=== PATIENT | female | born 1965 | race African-American/Black ===

== ENCOUNTER 2022-06-15 05:10 | Inpatient (IN) ==
[2022-06-08 12:12] LABS: Basophils # 0.1 10*3/uL (0.0-0.2); Basophils % 1.7 % (0.0-0.8); Eosinophils # 0.2 10*3/uL (0.0-0.87); Eosinophils % 3.7 % (0.00-10.9); Hematocrit 34.8 VOL% (35.7-47.0); Hemoglobin 11.3 GM/DL (12.0-16.0); Immature Granulocytes % 0.2 %; Immature Granulocytes Absolute 0.01 #; Lymphocytes # 1.8 10*3/uL (1.4-4.0); Mean Corpuscular HGB Conc 32.5 GM/DL (32-36); Mean Platelet Volume 10.4 FL (9.6-12.0); Monocytes # 0.4 10*3/uL (0.11-0.8); Monocytes % 8.4 % (1.7-12.7); Platelet Count 371 T/CUMM (130-400); Red Cell Distribution Width 13.9 % (9.3-17.3); White Blood Count 4.6 T/CUMM (4-12)
[2022-06-08 12:43] LABS: Alanine Aminotransferase 25 U/L (13-56); Albumin 3.9 G/DL (3.4-5.0); Alkaline Phosphatase 105 U/L (45-117); Aspartate Amino Transferase 27 U/L (0-37); Bilirubin,Total < 0.39 MG/DL (0.20-1.00); Blood Urea Nitrogen 33 MG/DL (7-18); Calcium 9.2 MG/DL (8.5-10.1); Carbon Dioxide 26 MMOL/L (21-32); Chloride 108 MMOL/L (98-107); Glucose 99 MG/DL (74-106); Osmolality,Calculated 285.4 MOS/KG (273-304); Sodium 140 MMOL/L (136-145)
[2022-06-15] MEDS ORDERED: propofoL 200 MG/20 ML VIAL IV ONE (05:59)
[2022-06-15] MEDS ORDERED: LIDOCAINE 2% 5 ML VIAL ONE (05:59)
[2022-06-15] MEDS ORDERED: ETOMIDATE 40 MG/20 ML VIAL IV ONE (05:59)
[2022-06-15] MEDS ORDERED: fentaNYL 100 MCG/2 ML VIAL ONE ×2 (05:59→09:51)
[2022-06-15] MEDS ORDERED: ROCURONIUM 50 MG/5 ML VIAL IV ONE (06:01)
[2022-06-15] MEDS ORDERED: SEVOFLURANE 1 UNIT/15 MINUTE INH ONE ×10 (06:01→10:00)
[2022-06-15] MEDS ORDERED: MIDAZOLAM 2 MG/2 ML VIAL ONE (06:15)
[2022-06-15] MEDS: LACTATED RINGERS 1,000 ML IV SCH (06:21)
[2022-06-15] MEDS ORDERED: INDOCYANINE GREEN 25 MG VIAL IV ONE (06:28)
[2022-06-15] MEDS ORDERED: DEXAMETHASONE 4 MG/1 ML VIAL ONE ×2 (06:29→07:36)
[2022-06-15] MEDS ORDERED: ROPIVACAINE 0.5% 30 ML VIAL ONE ×2 (06:30→06:35)
[2022-06-15] MEDS ORDERED: ceFAZolin 2,000 MG/50 ML DUPLEX IV ONE (06:30)
[2022-06-15] MEDS ORDERED: ALVIMOPAN 12 MG CAPSULE ONE (06:51)
[2022-06-15] MEDS ORDERED: ALVIMOPAN 12 MG CAPSULE PO ONE (06:58)
[2022-06-15] MEDS ORDERED: PHENYLEPHRINE 10 MG/1 ML VIAL IV ONE (07:02)
[2022-06-15] MEDS ORDERED: SUGAMMADEX 200 MG/2 ML VIAL IV ONE (09:37)
[2022-06-15] MEDS ORDERED: ONDANSETRON 4 MG/2 ML VIAL IV PRN (10:00)
[2022-06-15] MEDS ORDERED: SIMETHICONE CHEW 125 MG TABLET PO PRN (10:00)
[2022-06-15] MEDS ORDERED: diphenhydrAMINE 50 MG/1 ML VIAL IV PRN (10:00)
[2022-06-15] MEDS ORDERED: PROMETHAZINE 25 MG/1 ML VIAL IM PRN (10:00)
[2022-06-15] MEDS: ACETAMINOPHEN 325 MG TABLET PO SCH ×3 (10:00→21:03)
[2022-06-15] MEDS ORDERED: HYDROmorphone 1 MG/1 ML SYRINGE IV PRN (10:00)
[2022-06-15 10:27] LABS: Basophils # 0.1 10*3/uL (0.0-0.2); Basophils % 0.9 % (0.0-0.8); Eosinophils # 0.1 10*3/uL (0.0-0.87); Eosinophils % 1.1 % (0.00-10.9); Hematocrit 34.9 VOL% (35.7-47.0); Hemoglobin 11.5 GM/DL (12.0-16.0); Immature Granulocytes % 0.3 %; Immature Granulocytes Absolute 0.02 #; Lymphocytes # 2.6 10*3/uL (1.4-4.0); Mean Corpuscular Volume 87.7 FL (87-102); Mean Platelet Volume 9.4 FL (9.6-12.0); Monocytes # 0.3 10*3/uL (0.11-0.8); Monocytes % 3.2 % (1.7-12.7); Neutrophils % 61.5 % (38.7-73.9); Platelet Count 349 T/CUMM (130-400); Red Blood Count 3.98 MC/CUMM (3.8-5.5); Red Cell Distribution Width 13.7 % (9.3-17.3); White Blood Count 7.9 T/CUMM (4-12)
[2022-06-15 10:45] LABS: Osmolality,Calculated 285.4 MOS/KG (273-304); Potassium 3.1 MMOL/L (3.5-5.1)
[2022-06-15] MEDS: SODIUM CHLORIDE 0.9% 1,000 ML IV SCH ×2 (11:30→22:15)
[2022-06-15] MEDS: oxyCODONE/ACETAMINOPHEN 5-325 MG TABLET PO PRN ×2 (11:37→21:04)
[2022-06-15] MEDS: DOCUSATE SODIUM 100 MG CAPSULE PO SCH (21:03)
[2022-06-15] MEDS: ALVIMOPAN 12 MG CAPSULE PO SCH (21:03)
[2022-06-16] MEDS: ACETAMINOPHEN 325 MG TABLET PO SCH ×4 (04:40→21:02)
[2022-06-16 05:33] LABS: Basophils % 0.2 % (0.0-0.8); Hematocrit 30.6 VOL% (35.7-47.0); Hemoglobin 10.3 GM/DL (12.0-16.0); Immature Granulocytes % 0.3 %; Immature Granulocytes Absolute 0.03 #; Lymphocytes # 1.5 10*3/uL (1.4-4.0); Lymphocytes % 15.8 % (21.3-54.2); Mean Corpuscular HGB Conc 33.7 GM/DL (32-36); Mean Corpuscular Volume 85.7 FL (87-102); Mean Platelet Volume 10.1 FL (9.6-12.0); Monocytes # 0.5 10*3/uL (0.11-0.8); Monocytes % 4.9 % (1.7-12.7); Neutrophils % 78.8 % (38.7-73.9); Platelet Count 352 T/CUMM (130-400); Red Blood Count 3.57 MC/CUMM (3.8-5.5); Red Cell Distribution Width 13.6 % (9.3-17.3); White Blood Count 9.3 T/CUMM (4-12)
[2022-06-16 06:06] LABS: Calcium 8.4 MG/DL (8.5-10.1); Osmolality,Calculated 280.4 MOS/KG (273-304); Potassium 3.3 MMOL/L (3.5-5.1)
[2022-06-16] MEDS: oxyCODONE/ACETAMINOPHEN 5-325 MG TABLET PO PRN ×3 (06:21→18:15)
[2022-06-16] MEDS: LACTATED RINGERS 1,000 ML IV SCH (07:35)
[2022-06-16] MEDS: SODIUM CHLORIDE 0.9% 1,000 ML IV SCH (07:35)
[2022-06-16] MEDS: cefTRIAXone 1,000 MG in SODIUM CHLORIDE 0.9% 100 ML IV SCH (08:29)
[2022-06-16] MEDS: POTASSIUM CHLORIDE 20 MEQ TABLET PO SCH (08:29)
[2022-06-16] MEDS: ALVIMOPAN 12 MG CAPSULE PO SCH ×2 (08:34→21:01)
[2022-06-16] MEDS: allopurinoL 100 MG TABLET PO SCH (08:34)
[2022-06-16] MEDS: amLODIPine 10 MG TABLET PO SCH (08:34)
[2022-06-16] MEDS: DOCUSATE SODIUM 100 MG CAPSULE PO SCH ×2 (08:34→21:01)
[2022-06-17] MEDS: oxyCODONE/ACETAMINOPHEN 5-325 MG TABLET PO PRN ×2 (00:42→08:18)
[2022-06-17] MEDS: ACETAMINOPHEN 325 MG TABLET PO SCH (04:07)
[2022-06-17 05:33] LABS: Basophils # 0.1 10*3/uL (0.0-0.2); Basophils % 1.1 % (0.0-0.8); Eosinophils # 0.2 10*3/uL (0.0-0.87); Eosinophils % 3.7 % (0.00-10.9); Hematocrit 34.3 VOL% (35.7-47.0); Hemoglobin 11.2 GM/DL (12.0-16.0); Immature Granulocytes % 0.3 %; Immature Granulocytes Absolute 0.02 #; Lymphocytes # 2.4 10*3/uL (1.4-4.0); Lymphocytes % 38.4 % (21.3-54.2); Mean Corpuscular HGB Conc 32.7 GM/DL (32-36); Mean Corpuscular Volume 87.1 FL (87-102); Mean Platelet Volume 10.1 FL (9.6-12.0); Monocytes # 0.4 10*3/uL (0.11-0.8); Neutrophils % 49.5 % (38.7-73.9); Platelet Count 368 T/CUMM (130-400); Red Blood Count 3.94 MC/CUMM (3.8-5.5); Red Cell Distribution Width 13.8 % (9.3-17.3); White Blood Count 6.1 T/CUMM (4-12)
[2022-06-17 07:49] VITALS: BP 146/81
[2022-06-17] MEDS: allopurinoL 100 MG TABLET PO SCH (08:12)
[2022-06-17] MEDS: DOCUSATE SODIUM 100 MG CAPSULE PO SCH (08:12)
[2022-06-17] MEDS: POTASSIUM CHLORIDE 20 MEQ TABLET PO SCH (08:12)
[2022-06-17] MEDS: amLODIPine 10 MG TABLET PO SCH (08:12)
[2022-06-17] MEDS: cefTRIAXone 1,000 MG in SODIUM CHLORIDE 0.9% 100 ML IV SCH (08:13)
[2022-06-17] MEDS: ALVIMOPAN 12 MG CAPSULE PO SCH (08:13)
== END 2022-06-17 10:18 | disposition home or self-care (01) | DRG 443 ==
LOC: N.OR 05:10 → N.SDSINP 05:11 → N.3E 10:00
PROVIDERS: ADMIT Surgery; ATTEND Surgery